=== PATIENT | male | born 1965 | race Caucasian/White ===

== ENCOUNTER 2019-10-25 14:59 | Emergency (ER) | payer MEDICAID, MEDICARE ==
--- NOTE | 2019-10-25 15:55 | EDM.PDOC ---
ED HPI GENERAL MEDICAL PROBLEM - General Chief Complaint: Genitourinary Problem Stated Complaint: TESTICULAR PAIN Time Seen by Provider: 10/25/19 15:01 Source of Information: Reports: Patient History Limitations: Reports: No Limitations - History of Present Illness INITIAL COMMENTS - FREE TEXT/NARRATIVE: HISTORY AND PHYSICAL: History of present illness: Patient is a 53-year-old male who presents to the ED today with concern of left testicular pain over the past 1 week. Patient states that he has had chronic left testicular pain after an injury that occurred in the approximately 20 years ago. Patient states that he has followed with Dr. Donohue for his left testicular pain for many years now but states that he is upset with his care. Patient states 1 week ago he began having more significant left-sided testicular pain so called Dr. Donohue's office today and was told to come to the ER to be evaluated. Patient states he has had an ultrasound done in the past by Dr. Donohue and states he is unsure of the cause of his testicle pain. Patient states he had an appointment today with Dr. Donohue the urologist but decided to cancel it because he does not prefer him. Patient denies any penile drainage. Patient denies any other symptoms or concerns. Patient denies fever, chills, chest pain, shortness of breath, or cough. Denies headache, neck stiff ness, change in vision, syncope, or near syncope. Denies nausea, vomiting, abdominal pain, diarrhea, constipation, or dysuria. Has not noted any blood in urine or stool. Patient has been eating and drinking appropriately. Review of systems: As per history of present illness and below otherwise all systems reviewed and negative. Past medical history: As per history of present illness and as reviewed below otherwise noncontributory. Surgical history: As per history of present illness and as reviewed below otherwise noncontributory. Social history: See social history for further information Family history: As per history of present illness and as reviewed below otherwise noncontributory. Physical exam: General: Patient is alert, oriented, and in no acute distress. Patient sitting comfortably on exam table. HEENT: Atraumatic, normocephalic, pupils equal and reactive bilaterally, negative for conjunctival pallor or scleral icterus, mucous membranes moist, TMs normal bilaterally, throat clear, neck supple, nontender, trachea midline. No drooling or trismus noted. No meningeal signs. No hot potato voice noted. Lungs: Clear to auscultation, breath sounds equal bilaterally, chest nontender. Heart: S1S2, regular rate and rhythm without overt murmur Abdomen: Soft, nondistended, nontender. Negative for masses or hepatosplenomegaly. Negative for costovertebral tenderness. Pelvis: Stable nontender. Genitourinary: Cotton Factor at bedside RP. Patient does have moderate pain of the left testicle and scrotum; left scrotum does have a "bag of worms" on palpation. No penile drainage, rashes, lesions, or hernia noted. Rectal: Deferred. Skin: Intact, warm, dry. No lesions or rashes noted. Extremities: Atraumatic, negative for cords or calf pain. Neurovascular unremarkable. Neuro: Awake, alert, oriented. Cranial nerves II through XII unremarkable. Cerebellum unremarkable. Motor and sensory unremarkable throughout. Exam nonfocal. Notes: Discussed the importance for follow up with the urologist. Voices understanding and is agreeable to plan of care. Denies any further questions or concerns at this time. Diagnostics: UA, gonorrhea and chlamydia, scrotum w contents US Therapeutics: None Prescription: None Impression: Bilateral varicoceles Plan: 1. Wear an athletic support/jock strap as discussed for symptomatic relief. 2. Alternate ibuprofen and Tylenol as directed for pain and discomfort. 3. Follow-up with the urologist as discussed. Return to the ED as needed and as discussed. Definitive disposition and diagnosis as appropriate pending reevaluation and review of above. Treatments PROFESSOR OF ENVIRONMENTAL STUDIES: Reports: Aspirin, NSAIDS Scrotum Pain Score (Numeric/FACES): 10 - Related Data Allergies Allergy/AdvReac Type Severity Reaction Status Date / Time No Known Allergies Allergy Verified 04/25/19 10:35 Home Meds: Home Meds Brinzolamide/Brimonidine Tart [Simbrinza 1%-0.2% Eye Drops] 1 ml OP BEDTIME [History] Latanoprost 2.5 ml OP QID 10/25/19 [History] prednisoLONE acetate [Pred Mild] 10 ml OP QID 10/25/19 [History] timoloL maleate [Timoptic 0.5% Opth Soln] 5 ml .XX QID 10/25/19 [History] ED ROS GENERAL - Review of Systems Review Of Systems: Comprehensive ROS is negative, except as noted in HPI. ED EXAM, GENERAL - Physical Exam Exam: See Below (see dictation) Course - Vital Signs Last Recorded V/S: Last Vital Signs Temp 97.6 F 10/25/19 15:30 Pulse 67 10/25/19 15:30 Resp 20 10/25/19 15:30 BP 139/113 H 10/25/19 15:30 Pulse Ox 97 10/25/19 15:30 - Orders/Labs/Meds Orders: Active Orders 24 hr Category Date Time Status Scrotal Duplex Ltd [US] Routine Exams 10/25/19 Taken CHLAMYDIA AND GONORRHEA BY TMA Stat Lab 10/25/19 17:00 Received Labs: Laboratory Tests 10/25/19 Range/Units 17:00 Urine Color YELLOW Urine Appearance CLEAR Urine pH 6.0 (5.0-8.0) Ur Specific [place]abor >= 1.030 (1.001-1.035) Urine Protein NEGATIVE (NEGATIVE) mg/dL Urine Glucose (UA) NEGATIVE (NEGATIVE) mg/dL Urine Ketones NEGATIVE (NEGATIVE) mg/dL Urine Occult Blood NEGATIVE (NEGATIVE) Urine Nitrite NEGATIVE (NEGATIVE) Urine Bilirubin NEGATIVE (NEGATIVE) Urine Urobilinogen 0.2 (<2.0) EU/dL Ur Leukocyte Esterase NEGATIVE (NEGATIVE) Departure - Departure Time of Disposition: 17:24 Disposition: Home, Self-Care 01 Clinical Impression: Varicocele - Discharge Information Referrals: PCP,None [Primary Care Provider] - Forms: ED Department Discharge Additional Instructions: The following information is given to patients seen in the emergency department who are being discharged to home. This information is to outline your options for follow-up care. We provide all patients seen in our emergency department with a follow-up referral. The need for follow-up, as well as the timing and circumstances, are variable depending upon the specifics of your emergency department visit. If you don't have a primary care physician on staff, we will provide you with a referral. We always advise you to contact your personal physician following an emergency department visit to inform them of the circumstance of the visit and for follow-up with them and/or the need for any referrals to a consulting specialist. The emergency department will also refer you to a specialist when appropriate. This referral assures that you have the opportunity for follow-up care with a specialist. All of these measure are taken in an effort to provide you with optimal care, which includes your follow-up. Under all circumstances we always encourage you to contact your private physician who remains a resource for coordinating your care. When calling for follow-up care, please make the office aware that this follow-up is from your recent emergency room visit. If for any reason you are refused follow-up, please contact the [facility] Emergency Department at and asked to speak to the emergency department charge nurse. [facility] [address] [place] [id number] [facility] [address] [place] [id number] [facility] - Urology, Dr. Chicas [address] [place] [id number] [facility], Urology [address] [place] [address], 5th floor 1. Wear an athletic support/jock strap as discussed for symptomatic relief. 2. Alternate ibuprofen and Tylenol as directed for pain and discomfort. 3. Follow-up with the urologist as discussed. Return to the ED as needed and as discussed. Sepsis Event Note - Evaluation Sepsis Screening Result: No Definite Risk - Focused Exam Vital Signs: Vital Signs Temp Pulse Resp BP Pulse Ox 10/25/19 15:30 97.6 F 67 20 139/113 H 97 Date Exam was Performed: 10/25/19 Time Exam was Performed: 17:19 - My Orders Last 24 Hours: My Active Orders 10/25/19 17:00 CHLAMYDIA AND GONORRHEA BY TMA Stat - Assessment/Plan Last 24 Hours: My Active Orders 10/25/19 17:00 CHLAMYDIA AND GONORRHEA BY TMA Stat
--- NOTE | 2019-10-25 17:13 | US ---
Testicular ultrasound: Multiple real-time images of the testicles were obtained. Multiple real-time images were obtained of both testicles as well as color Doppler evaluation and duplex evaluation. Testicles show homogeneous ultrasound appearance without intratesticular abnormality. Both arterial and venous blood flow are seen within the testicles. Small bilateral hydroceles are noted. Small right-sided varicocele is seen. Larger left-sided varicocele is noted. Impression: 1. Bilateral varicoceles, larger on the left side. 2. Small bilateral hydroceles. 3. No intratesticular abnormality is seen. Diagnostic code #3 This report was dictated in MDT
--- NOTE | 2019-10-26 10:41 | US ---
EXAM DATE: 10/25/19 PATIENT'S AGE: 53 Testicular ultrasound: Multiple real-time images of the testicles were obtained. Multiple real-time images were obtained of both testicles as well as color Doppler evaluation and duplex evaluation. Testicles show homogeneous ultrasound appearance without intratesticular abnormality. Both arterial and venous blood flow are seen within the testicles. Small bilateral hydroceles are noted. Small right-sided varicocele is seen. Larger left-sided varicocele is noted. Impression: 1. Bilateral varicoceles, larger on the left side. 2. Small bilateral hydroceles. 3. No intratesticular abnormality is seen. Diagnostic code #3 This report was dictated in MDT Report Signed by Proxy. NEVAEH
== END 2019-10-25 17:31 | disposition home or self-care (01) ==
LOC: MW.ED 14:59
DX: I86.1 Scrotal varices (principal); Z79.899 Other long term (current) drug therapy
CPT/HCPCS: 76870; 76870-26; 81003; 87491; 87591; 93976; 93976-26; 99284-25

== ENCOUNTER 2020-01-02 16:40 | Observation (INO) | payer MEDICAID ==
--- NOTE | 2020-01-02 17:06 | CT ---
Head CT Technique: Multiple axial sections through the brain were obtained. Intravenous contrast was not utilized. Comparison: Prior head CT study of 12/29/19. Findings: Wedgelike defect seen within the left posterior parietal cortex is stable most likely representing old small infarct. No other abnormal parenchymal densities are seen. No evidence of intracranial hemorrhage. No midline shift or mass-effect is seen. Ventricles along with basal cisterns and sulci over the convexities are within normal limits for the patient's age. Visualized paranasal sinuses and mastoid sinuses show nothing acute. No acute calvarial finding is seen. Impression: 1. Stable head CT from previous exam of 12/29/19. 2. No acute intracranial abnormality is appreciated. Diagnostic code #2 This report was dictated in MDT
--- NOTE | 2020-01-02 17:13 | EDM.PDOC ---
ED HPI GENERAL MEDICAL PROBLEM - General Chief Complaint: Neuro Symptoms/Deficits Stated Complaint: MINI STROCK Time Seen by Provider: 01/02/20 17:01 Source of Information: Reports: Patient, Old Records History Limitations: Reports: No Limitations - History of Present Illness INITIAL COMMENTS - FREE TEXT/NARRATIVE: 54-year-old male past medical history of hyper tension, hyperlipidemia presenting with concern for stroke. Patient states that in the middle the night this morning, he woke up with a left-sided retro-orbital headache. He took several doses of ibuprofen without relief. Around 1 PM this afternoon, the patient began developing left-sided facial droop "from the eyelid down". This is also accompanied by burning pain and tingling to the left upper and lower extremities and weakness to left upper and lower extremities. Patient states that the facial droop and left upper and lower extremity weakness have been improving on their own. At present here in the emergency department, he complains of pain to the left side of the face and tingling to the left arm and leg. He also complains of weakness to the left leg. Denies any history of head trauma. He states that approximately 5 days ago, he was evaluated for transient left upper and lower extremity weakness - Related Data Allergies Allergy/AdvReac Type Severity Reaction Status Date / Time No Known Allergies Allergy Verified 01/02/20 16:43 Home Meds: Home Meds Brinzolamide/Brimonidine Tart [Simbrinza 1%-0.2% Eye Drops] 1 ml OP BEDTIME 10/25/19 [History] Latanoprost 2.5 ml OP QID 10/25/19 [History] prednisoLONE acetate [Pred Mild] 10 ml OP QID 10/25/19 [History] timoloL maleate [Timoptic 0.5% Opth Soln] 5 ml .XX QID 10/25/19 [History] atorvaSTATin Calcium [Lipitor] 20 mg PO BEDTIME 01/02/20 [History] Past Medical History HEENT History: Reports: Retinal Detachment Other Cardiovascular History: Hyperlipidemia Genitourinary History: Reports: Other (See Below) Other Genitourinary History: "L testical problems since in ." - Infectious Disease History Infectious Disease History: Reports: Chicken Pox Social & Family History - Family History Family Medical History: Noncontributory - Caffeine Use Caffeine Use: Reports: None ED ROS GENERAL - Review of Systems Review Of Systems: See Below Constitutional: Denies: Fever, Chills HEENT: Denies: Ear Discharge, Eye Pain, Hearing Loss, Vision Change Respiratory: Denies: Shortness of Breath Cardiovascular: Denies: Chest Pain Endocrine: Reports: No Symptoms GI/Abdominal: Denies: Abdominal Pain, Nausea, Vomiting : Denies: Flank Pain Musculoskeletal: Denies: Arm Pain, Back Pain Skin: Denies: Rash, Lesions Neurological: Reports: Headache, Numbness, Tingling, Weakness. Denies: Dizzine ss, Paresthesia, Pre-Existing Deficit, Seizure, Trouble Speaking, Change in Speech, Gait Disturbance Psychiatric: Reports: No Symptoms Hematologic/Lymphatic: Reports: No Symptoms Immunologic: Reports: No Symptoms ED EXAM, NEURO - Physical Exam Exam: See Below Text/Narrative:: Vital signs reviewed. Nursing notes reviewed. Constitutional: Awake, alert, non-distressed. Head: Normocephalic, atraumatic. Eyes: EOMI, conjunctiva normal, no discharge, no scleral icterus. PERRL at 3 mm bilaterally Ears, Nose, Throat: External ears and nose normal, moist oral mucosa. Cardiovascular: 2+ radial pulses bilaterally, capillary refill less than 2 seconds. Pulmonary: normal work of breathing, no accessory muscle use. Abdomen/GI: Soft, nontender, nondistended, no guarding or rigidity, no masses. Musculoskeletal: No deformities. Integumentary: Appropriate color for ethnicity, warm, dry, no pallor or jaundice, no rash. Neurologic: Awake, alert, and oriented x3. Cranial nerves II through XII intact. Mild facial droop to the corner of the left lip. No dysarthria. No temporal artery tenderness. Supple neck with normal range of motion. No pronator drift. Left leg drift noted on examination. Normal [id number] and [id number]. No dysdiadochokinesia. 5/5 strength in all extremities. Sensation intact to light touch x4. Normal visual marcano, no field cuts. Able to sit, stand, and ambulate without assistance. Psychiatric: Appropriate mood and affect, normal thought process. EKG INTERPRETATION EKG Interpretation Comments: 12-Lead ECG Interpretation Acquired: 5:16 PM Rhythm: Sinus bradycardia Rate: 58 bpm [place]: Left axis deviation Intervals: Normal Ectopy: None Ischemic Changes: None apparent RV Strain: No obvious RV strain pattern. ST Segments/T-Waves: No notable changes Interpretation: Abnormal ECG Course - Vital Signs Text/Narrative:: Patient mildly hypertensive but hemodynamically stable, afebrile, well- appearing, looks nontoxic. Differential diagnosis includes but is not limited to: Ischemic CVA, TIA, intracranial hemorrhage, subdural hemorrhage, subarachnoid hemorrhage, intraparenchymal hemorrhage, hypertensive encephalopathy, complex migraine, glucose disturbance, electrolyte disturbance, occult head trauma, postictal state, conversion disorder, etc. Patient was immediately declared as a stroke code upon being triaged and was immediately roomed. IV access was established and labs were sent. Blood glucose level is normal. Immediately taken to the radiology suite, noncontrast head CT shows a old appearing left parietal infarct. Angiography of the head and neck shows no acute occlusion, stable old infarct in the left parietal region. Returned to the ED bay. Twelve-lead EKG was obtained, showing no acute ischemia. We obtained a 1 view chest x-ray, which looks reassuring. Labs reassuring, negative troponin, normal INR and APTT, normal electrolytes and renal function. NIH stroke scale is 2. Passed bedside swallow test and given full dose Plavix as a loading dose. Took 324 mg aspirin at home. His neurologic symptoms seem to be improving over the past few hours which would be a contraindication to systemic thrombolysis. Additionally, think his NIH stroke scale is only 2 which will be considered minor deficits. [facility] was paged. I discussed the case with their neurologist (Dr. Vidal) who did not recommend tPA. They did recommend full-dose Plavix and admitting the hospital for the remainder of a stroke work-up. We will plan to admit to the hospitalist service on observation status. I spoke with Dr. Guy who agrees to admit. Last Recorded V/S: Last Vital Signs Temp 36.6 C 01/02/20 17:01 Pulse 66 01/02/20 17:21 Resp 18 01/02/20 17:21 BP 141/99 H 01/02/20 17:21 Pulse Ox 98 01/02/20 17:21 - Orders/Labs/Meds Orders: Active Orders 24 hr Category Date Time Status Assess Neurological Status [RC] CONTINUOUS Care 01/02/20 17:01 Active Blood Glucose Check, Bedside [RC] STAT Care 01/02/20 17:01 Active Cardiac Monitoring [RC] CONTINUOUS Care 01/02/20 17:01 Active Communication Order [RC] STAT Care 01/02/20 17:01 Active EKG 12 Lead [EKG Documentation Completion] [RC] STAT Care 01/02/20 17:13 Active Height and Weight [RC] UPON Care 01/02/20 17:01 Active NIH Stroke Scale [RC] Q15M Care 01/02/20 17:01 Active Nursing Bedside Swallow Screen [RC] STAT Care 01/02/20 17:01 Active Oxygen Therapy, ED [RC] ASDIRECTED Care 01/02/20 17:01 Active Vital Signs [RC] Q15M Care 01/02/20 17:01 Active Labs: Laboratory Tests 01/02/20 01/02/20 01/02/20 Range/Units 16:43 16:43 16:43 WBC 7.84 (4.0-11.0) K/uL RBC 5.05 (4.50-5.90) M/uL Hgb 14.7 (13.0-17.0) g/dL Hct 43.6 (38.0-50.0) % MCV 86.3 (80.0-98.0) fL MCH 29.1 (27.0-32.0) pg MCHC 33.7 (31.0-37.0) g/dL RDW Std Deviation 43.8 (28.0-62.0) fl RDW Coeff of Corky 14 (11.0-15.0) % Plt Count 240 (150-400) K/uL MPV 9.50 (7.40-12.00) fL Neut % (Auto) 51.5 (48.0-80.0) % Lymph % (Auto) 35.8 (16.0-40.0) % Casey % (Auto) 7.7 (0.0-15.0) % Eos % (Auto) 4.5 (0.0-7.0) % Baso % (Auto) 0.5 (0.0-1.5) % Neut # (Auto) 4.0 (1.4-5.7) K/uL Lymph # (Auto) 2.8 H (0.6-2.4) K/uL Casey # (Auto) 0.6 (0.0-0.8) K/uL Eos # (Auto) 0.4 (0.0-0.7) K/uL Baso # (Auto) 0.0 (0.0-0.1) K/uL Nucleated RBC % 0.0 /100WBC Nucleated RBCs # 0 K/uL INR 0.93 APTT 28.5 (18.6-31.3) SEC Sodium 142 (136-148) mmol/L Potassium 3.6 (3.5-5.1) mmol/L Chloride 106 (98-107) mmol/L Carbon Dioxide 27.5 (21.0-32.0) mmol/L BUN 9 (7.0-18.0) mg/dL Creatinine 0.9 (0.8-1.3) mg/dL Est Cr Clr Drug Dosing TNP Estimated GFR (MDRD) > 60.0 ml/min Glucose 116 H (74-106) mg/dL Calcium 8.7 (8.5-10.1) mg/dL Total Bilirubin 0.4 (0.2-1.0) mg/dL AST 18 (15-37) IU/L ALT 31 (14-63) IU/L Alkaline Phosphatase 58 (46-116) U/L Troponin I <0.050 (0.000-0.056) ng/mL Total Protein 7.1 (6.4-8.2) g/dL Albumin 4.0 (3.4-5.0) g/dL Globulin 3.1 (2.6-4.0) g/dL Albumin/Globulin Ratio 1.3 (0.9-1.6) Meds: Medications Discontinued Medications Generic Name Dose Route Start Last Admin Trade Name Freq PRN Reason Stop Dose Admin Acetaminophen 1,000 mg 01/02/20 17:48 01/02/20 18:07 Tylenol Extra Strength PO 01/02/20 17:49 1,000 mg ONETIME ONE Administration Clopidogrel Bisulfate 300 mg 01/02/20 17:32 01/02/20 17:39 Plavix PO 01/02/20 17:33 300 mg ONETIME ONE Administration Prochlorperazine Edisylate 5 51 mls @ 150 mls/hr 01/02/20 17:48 mg/ Sodium Chloride IV 01/02/20 18:08 ONETIME ONE Departure - Departure Time of Disposition: 17:47 Disposition: Refer to Observation Condition: Good Clinical Impression: Ischemic stroke - Discharge Information Sepsis Event Note (ED) - Evaluation Sepsis Screening Result: No Definite Risk - Focused Exam Vital Signs: Vital Signs Temp Pulse Resp BP Pulse Ox 01/02/20 17:21 66 18 141/99 H 98 01/02/20 17:01 36.6 C 58 L 16 133/92 H 98 01/02/20 16:48 36.4 C 84 18 153/94 H 98 - My Orders Last 24 Hours: My Active Orders 01/02/20 17:01 Assess Neurological Status [RC] CONTINUOUS Blood Glucose Check, Bedside [RC] STAT Cardiac Monitoring [RC] CONTINUOUS Communication Order [RC] STAT Height and Weight [RC] UPON NIH Stroke Scale [RC] Q15M Nursing Bedside Swallow Screen [RC] STAT Oxygen Therapy, ED [RC] ASDIRECTED Vital Signs [RC] Q15M 01/02/20 17:13 EKG 12 Lead [EKG Documentation Completion] [RC] STAT - Assessment/Plan Last 24 Hours: My Active Orders 01/02/20 17:01 Assess Neurological Status [RC] CONTINUOUS Blood Glucose Check, Bedside [RC] STAT Cardiac Monitoring [RC] CONTINUOUS Communication Order [RC] STAT Height and Weight [RC] UPON NIH Stroke Scale [RC] Q15M Nursing Bedside Swallow Screen [RC] STAT Oxygen Therapy, ED [RC] ASDIRECTED Vital Signs [RC] Q15M 01/02/20 17:13 EKG 12 Lead [EKG Documentation Completion] [RC] STAT
[2020-01-02 17:27] LABS: BLOOD UREA NITROGEN,BUN 9 mg/dL (7.0-18.0); CARBON DIOXIDE,CO2 27.5 mmol/L (21.0-32.0); CHLORIDE,CL 106 mmol/L (98-107); GLUCOSE RANDOM 116 mg/dL (74-106); POTASSIUM,K 3.6 mmol/L (3.5-5.1); SODIUM,NA 142 mmol/L (136-148)
[2020-01-02] MEDS ORDERED: Clopidogrel 75 MG Tab PO ONE (17:32)
--- NOTE | 2020-01-02 17:33 | CT ---
CT angiogram of the neck Technique: Multiple axial sections through the neck were obtained. Intravenous contrast was utilized. Multiple MIP images were obtained. Comparison: No prior neck angiogram is available. Findings: Both vertebral arteries are patent into the basilar artery. No focal stenosis or occlusion is seen. No dissection is seen. Common carotid artery showed no evidence of stenosis. There is mild plaque being seen within the distal common carotid artery at the carotid bulb causing no significant narrowing. Small outpouching of contrast into this plaque is seen into this plaque and this is felt to represent a ulcerated plaque. Internal carotid arteries are patent into the middle and anterior cerebral arteries. Proximal external carotid arteries appear within normal limits. No dissection is seen. Impression: 1. Focal plaque within the distal left common carotid artery at the carotid bulb. Small outpouching of contrast is seen into this plaque which is felt to represent a ulcerated plaque. Plaque causes no significant stenosis. 2. No additional abnormality is seen on CT angiogram of the neck. Diagnostic code #3 This report was dictated in MDT
--- NOTE | 2020-01-02 17:36 | CT ---
CT angiogram of brain Technique: Multiple axial sections through the brain were obtained. Intravenous contrast was given. Study performed in the arterial phase. Multiple MIP images were obtained. Comparison: No previous intracranial vascular imaging is available. Findings: Distal vertebral arteries are patent into the basilar artery. Both posterior cerebral arteries are patent. Both middle cerebral arteries are patent. Anterior cerebral arteries are also patent. No focal occlusion or narrowing is seen. No discrete aneurysm is appreciated. No vessels are seen in the area of the small old left-sided cortical infarct. Impression: 1. Lack of vessels within previously noted old infarct within the posterior left parietal region. 2. CT angiogram study of the brain is otherwise unremarkable. Diagnostic code #2 This report was dictated in MDT
[2020-01-02] MEDS ORDERED: Acetaminophen 500 MG Tab PO ONE (17:48)
[2020-01-02] MEDS ORDERED: Prochlorperazine 5 MG in Sodium Chloride 0.9% 50 ML IV ONE (17:48)
--- NOTE | 2020-01-02 18:02 | CR ---
Chest: Portable view of the chest was obtained. Comparison: Prior chest CT study of . Nodule is noted within the left lung base which correlates to a calcified granuloma on chest CT. Lungs otherwise are clear. Heart size and mediastinum are normal. Bony structures are grossly intact. Impression: 1. Nodule within the left lung base which correlates to a calcified granuloma chest CT. 2. Nothing acute is seen on portable chest x-ray. Diagnostic code #2 This report was dictated in MDT
[2020-01-02] MEDS ORDERED: Acetaminophen 325 MG Tab PO PRN (18:17)
[2020-01-02] MEDS ORDERED: Albuterol/Ipratropium 3.0-0.5 MG/3 ML Neb Soln NEB PRN (18:17)
--- NOTE | 2020-01-02 18:42 | PCM.HP.2 ---
H&P History of Present Illness - General Date of Service: 01/02/20 Admit Problem/Dx: Admission Diagnosis/Problem Admission Diagnosis/Problem Ischemic stroke - History of Present Illness Initial Comments - Free Text/Narative: 54-year-old male past medical history of HTN, HLD, CVA presenting to ER with c/o left-sided facial droop. Patient states that in the middle the night, patient woke up with a left-sided retro-orbital headache which was persistent in nature, He took several doses of ibuprofen without relief. Patient states this afternoon around 1pm, he noticed he had developed left-sided facial droop along with burning sensation, tingling and some weakness to the left upper and lower extremities. In the ER patient reported improvement in his symptoms but no complete resolution Denies any history of head trauma. According to the patient he was being evaluated by his PCP 5 days ago for possible TIA. 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 CTA of head and neck was done, showed no acute occlusion. EKG showed no acute ST/T wave ischemic changes. CXR unremarkable, Neurology concrete building assembler at [facility] was paged recommended no TPA, and to administer full dose of Plavix. Patient denied chest pain, syncope, palpitations, N/V, abdominal pain, dysuria, hematuria. Patient is being admitted for further work up. He also stated that his vision is blurry since 1pm today. 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 States his surgery had some complications so he has to get it redone as he sees double vision since his surgery. During my evaluation patient was upset when that "[facility]" doctor was contacted for recommendations of his care in the ER. States he had a bad experience with a doctor at [facility] and had he known "we would get [facility] doctor on board for his care he would have gone to [facility]" Patient asked for the room lights to be turned off during my physical exam due to photophobia. He let me perform only partial physical exam, would not let me examine his cranial nerves, states "dont mess with my eyes". Stated that doctors protect other doctors in this state and i will be one of them if i am not already. Patient got very upset and agitated and asked me to leave the room , I left the room there after as i felt physically threatened. Later i was told by the nursing staff that he asked for them to "keep the doctor out of his room." Head Pain Score (Numeric/FACES): 6 - Related Data Allergies/Adverse Reactions: Allergies Allergy/AdvReac Type Severity Reaction Status Date / Time No Known Allergies Allergy Verified 01/02/20 21:06 Home Medications: Home Meds Brinzolamide/Brimonidine Tart [Simbrinza 1%-0.2% Eye Drops] 1 ml OP BEDTIME 10/25/19 [History] Latanoprost 2.5 ml OP BEDTIME 10/25/19 [History] prednisoLONE acetate [Pred Mild] 10 ml OP QID 10/25/19 [History] timoloL maleate [Timoptic 0.5% Opth Soln] 5 ml .XX BID 10/25/19 [History] Ketorolac Tromethamine [Acular] 5 ml OP QID 01/02/20 [History] atorvaSTATin Calcium [Lipitor] 20 mg PO BEDTIME 01/02/20 [History] Past Medical History HEENT History: Reports: Retinal Detachment Cardiovascular History: Reports: None Other Cardiovascular History: Hyperlipidemia Respiratory History: Reports: None Gastrointestinal History: Reports: None Genitourinary History: Reports: Other (See Below) Other Genitourinary History: "L testical problems since in ." Musculoskeletal History: Reports: None Neurological History: Reports: None Psychiatric History: Reports: None Endocrine/Metabolic History: Reports: None Hematologic History: Reports: None Immunologic History: Reports: None Oncologic (Cancer) History: Reports: None Dermatologic History: Reports: None - Infectious Disease History Infectious Disease History: Reports: Chicken Pox - Past Surgical History Head Surgeries/Procedures: Reports: None HEENT Surgical History: Reports: None Cardiovascular Surgical History: Reports: None Respiratory Surgical History: Reports: None GI Surgical History: Reports: None Male Surgical History: Reports: None Endocrine Surgical History: Reports: None Neurological Surgical History: Reports: None Musculoskeletal Surgical History: Reports: None Oncologic Surgical History: Reports: None Dermatological Surgical History: Reports: None Social & Family History - Family History Family Medical History: Noncontributory - Tobacco Use Smoking Status *Q: Never Smoker Second Hand Smoke Exposure: No - Caffeine Use Caffeine Use: Reports: None - Recreational Drug Use Recreational Drug Use: Yes Recreational Drug Type: Reports: Marijuana/Hashish Recreational Drug Use Frequency: Daily H&P Review of Systems - Review of Systems: Review Of Systems: See Below General: Denies: Fever, Chills, Malaise, Weakness, Fatigue HEENT: Reports: Headaches. Denies: Ear Pain, Post Nasal Drip, Sinus Congestion Pulmonary: Denies: Shortness of Breath, Wheezing, Pleuritic Chest Pain Cardiovascular: Denies: Chest Pain, Palpitations, Dyspnea on Exertion, Orthopnea Gastrointestinal: Denies: Abdominal Pain, Anorexia, Black Stool Genitourinary: Denies: Dysuria, Frequency, Burning Musculoskeletal: Reports: Shoulder Pain, Arm Pain, Hand Pain, Leg Pain. Denies: Neck Pain, Back Pain Skin: Denies: Cyanosis, Jaundice, Mottled Psychiatric: Denies: Confusion, Depression, Mood Lability Neurological: Reports: Headache, Numbness, Tingling, Weakness. Denies: Confusion, Dizziness, Paresthesia, Pre-Existing Deficit Exam - Exam Exam: See Below Reason Not Obtained: incomplete exam due to patient not being co-operative - Vital Signs Vital Signs: Last Vital Signs Temp 36.6 C 01/02/20 17:01 Pulse 66 01/02/20 17:21 Resp 18 01/02/20 17:21 BP 141/99 H 01/02/20 17:21 Pulse Ox 98 01/02/20 17:21 Weight: 105.5 kg - Exam Quality Assessment: Supplemental Oxygen General: Alert, Oriented HEENT: Conjunctiva Clear Neck: Supple, Trachea Midline Lungs: Clear to Auscultation, Normal Respiratory Effort Cardiovascular: Regular Rate, Regular Rhythm, Normal S1, Normal S2 GI/Abdominal Exam: Normal Bowel Sounds, Soft, Non-Tender Extremities: Normal Inspection, Normal Range of Motion, No Pedal Edema, Leg Pain Skin: Warm Neurological: Normal Speech, Normal Tone Neuro Extensive - Mental Status: Alert, Oriented x3, Normal Cognition, Memory Intact, Withdraws to Pain. No: Disorientation to Person, Disorientation to Place, Disorientation to Time, Memory Loss-Remote Events, Memory Loss-Recent Events, Opens Eyes to Commands, Slow Response to Commands Neuro Extensive - Motor, Sensory, Reflexes: Abnormal Sensation, Abnormal Light Touch, Other (mild left facial droop). No: Dysarthria, Receptive Aphasia, Expressive Aphasia DTR: 3+: Patella (L), Patella (R) Psychiatric: Alert, Agitated. No: Normal Mood, Depressed, Homicidal Ideation, Hallucinations, Withdrawal Symptoms Physical Exam Comments:: incomplete neuro exam due to patient not being co-operative - Patient Data Lab Results Last 24 hrs: Laboratory Results - last 24 hr 01/02/20 01/02/20 01/02/20 Range/Units 16:43 16:43 16:43 WBC 7.84 (4.0-11.0) K/uL RBC 5.05 (4.50-5.90) M/uL Hgb 14.7 (13.0-17.0) g/dL Hct 43.6 (38.0-50.0) % MCV 86.3 (80.0-98.0) fL MCH 29.1 (27.0-32.0) pg MCHC 33.7 (31.0-37.0) g/dL RDW Std Deviation 43.8 (28.0-62.0) fl RDW Coeff of Corky 14 (11.0-15.0) % Plt Count 240 (150-400) K/uL MPV 9.50 (7.40-12.00) fL Neut % (Auto) 51.5 (48.0-80.0) % Lymph % (Auto) 35.8 (16.0-40.0) % Wake % (Auto) 7.7 (0.0-15.0) % Eos % (Auto) 4.5 (0.0-7.0) % Baso % (Auto) 0.5 (0.0-1.5) % Neut # (Auto) 4.0 (1.4-5.7) K/uL Lymph # (Auto) 2.8 H (0.6-2.4) K/uL Wake # (Auto) 0.6 (0.0-0.8) K/uL Eos # (Auto) 0.4 (0.0-0.7) K/uL Baso # (Auto) 0.0 (0.0-0.1) K/uL Nucleated RBC % 0.0 /100WBC Nucleated RBCs # 0 K/uL INR 0.93 APTT 28.5 (18.6-31.3) SEC Sodium 142 (136-148) mmol/L Potassium 3.6 (3.5-5.1) mmol/L Chloride 106 (98-107) mmol/L Carbon Dioxide 27.5 (21.0-32.0) mmol/L BUN 9 (7.0-18.0) mg/dL Creatinine 0.9 (0.8-1.3) mg/dL Est Cr Clr Drug Dosing TNP Estimated GFR (MDRD) > 60.0 ml/min Glucose 116 H (74-106) mg/dL Calcium 8.7 (8.5-10.1) mg/dL Total Bilirubin 0.4 (0.2-1.0) mg/dL AST 18 (15-37) IU/L ALT 31 (14-63) IU/L Alkaline Phosphatase 58 (46-116) U/L Troponin I <0.050 (0.000-0.056) ng/mL Total Protein 7.1 (6.4-8.2) g/dL Albumin 4.0 (3.4-5.0) g/dL Globulin 3.1 (2.6-4.0) g/dL Albumin/Globulin Ratio 1.3 (0.9-1.6) Result Diagrams: 01/03/20 05:40 01/03/20 05:40 Sepsis Event Note - Evaluation Sepsis Screening Result: No Definite Risk - Focused Exam Vital Signs: Vital Signs Temp Pulse Resp BP Pulse Ox 01/02/20 17:21 66 18 141/99 H 98 01/02/20 17:01 36.6 C 58 L 16 133/92 H 98 01/02/20 16:48 36.4 C 84 18 153/94 H 98 Date Exam was Performed: 01/03/20 Time Exam was Performed: 10:43 - Problem List (1) HTN (hypertension) SNOMED Code(s): 29344034 ICD Code: I10 - ESSENTIAL (PRIMARY) HYPERTENSION Status: Acute Current Visit: Yes (2) HLD (hyperlipidemia) SNOMED Code(s): 47196448 ICD Code: E78.5 - HYPERLIPIDEMIA, UNSPECIFIED Status: Acute Current Visit: Yes (3) CVA (cerebral vascular accident) SNOMED Code(s): 950335998 ICD Code: I63.9 - CEREBRAL INFARCTION, UNSPECIFIED Status: Acute Current Visit: Yes (4) Left face and left arm tingling SNOMED Code(s): 84695305, 654284617, 627054791 ICD Code: R20.2 - PARESTHESIA OF SKIN Status: Acute Current Visit: Yes Problem List Initiated/Reviewed/Updated: Yes Orders Last 24hrs: Active Orders 24 hr Category Date Time Status Admission Status [Patient Status] [ADT] Routine ADT 01/02/20 18:33 Active Antiembolic Devices [RC] PER UNIT ROUTINE Care 01/02/20 18:14 Active Assess Neurological Status [RC] CONTINUOUS Care 01/02/20 17:01 Active Blood Glucose Check, Bedside [RC] STAT Care 01/02/20 17:01 Active Cardiac Monitoring [RC] CONTINUOUS Care 01/02/20 17:01 Active Communication Order [RC] STAT Care 01/02/20 17:01 Active EKG 12 Lead [EKG Documentation Completion] [RC] STAT Care 01/02/20 17:13 Acti ve Height and Weight [RC] UPON Care 01/02/20 17:01 Active NIH Stroke Scale [RC] Q15M Care 01/02/20 17:01 Active Neuro Check [RC] Q4H Care 01/02/20 18:12 Active Nursing Bedside Swallow Screen [RC] STAT Care 01/02/20 17:01 Active Oxygen Therapy, ED [RC] ASDIRECTED Care 01/02/20 17:01 Active Oxygen Therapy, ED [RC] ASDIRECTED Care 01/02/20 18:12 Active RT Aerosol Therapy [RC] ASDIRECTED Care 01/02/20 18:17 Active Telemetry Monitoring [Cardiac Monitoring] [RC] . Care 01/02/20 18:34 Active DIRECTED Up ad Tika [RC] ASDIRECTED Care 01/02/20 18:12 Active Vital Signs [RC] Q15M Care 01/02/20 17:01 Active Vital Signs [RC] Q4H Care 01/02/20 18:12 Active Heart Healthy Diet [DIET] Diet 01/03/20 Breakfast Active Brain wo Cont [MR] Routine Exams 01/02/20 18:12 Ordered Echo 2D wo Cont [US] Routine Exams 01/02/20 18:12 Ordered BASIC METABOLIC PANEL,BMP [CHEM] AM Lab 01/03/20 05:11 Ordered CBC WITH AUTO DIFF [HEME] AM Lab 01/03/20 05:11 Ordered GLYCOSYLATED HEMOGLOBIN,HGBA1C [CHEM] AM Lab 01/03/20 05:11 Ordered LIPID PANEL [CHEM] AM Lab 01/03/20 05:11 Ordered MAGNESIUM [CHEM] AM Lab 01/03/20 05:11 Ordered PHOSPHORUS [CHEM] AM Lab 01/03/20 05:11 Ordered TSH [CHEM] AM Lab 01/03/20 05:11 Ordered Acetaminophen [Tylenol] Med 01/02/20 18:17 Ordered 650 mg PO Q6H PRN Albuterol/Ipratropium [DuoNeb 3.0-0.5 MG/3 ML] Med 01/02/20 18:17 Ordered 3 ml NEB Q4HRRT PRN Pulse Oximetry Continuous Monitoring [OM.PC] PRN Oth 01/02/20 18:17 Ordered Sequential Compression Device [OM.PC] Routine Oth 01/02/20 18:12 Ordered Medication Orders Acetaminophen (Tylenol) 650 mg PO Q6H PRN PRN Reason: Headache/Pain Albuterol/Ipratropium (Duoneb 3.0-0.5 Mg/3 Ml) 3 ml NEB Q4HRRT PRN PRN Reason: Shortness of Breath Assessment/Plan Comment:: 54 y/o M admitted for concern of stroke Neurology at [facility] didn't recommend TPA Admit to tele Vitals Q4 hours, Q4 Neuro checks Monitor on tele CTA noted to have a plaque in distal left common carotid artery but no acute oc clusion Will increase dose of statin to 40 mg daily Start ASA daily Obtain MRI of brain Lipid panel, HbA1c done recently in last few days Obtain 2D echo, TSH Monitor and replete electrolytes as needed Will consult Neurology in AM for further recs after MRI is obtained AHA diet SCD for dvt ppx
[2020-01-02] MEDS ORDERED: Iopamidol 755 MG/ML 50 ML Bottle IV ONE ×2 (19:12)
[2020-01-02] MEDS ORDERED: Potassium Chloride 20 MEQ Tab.ER PO ONE (19:54)
[2020-01-02] MEDS ORDERED: atorvaSTATin 20 MG Tab PO SCH (21:00)
[2020-01-02] MEDS ORDERED: atorvaSTATin 40 MG Tab PO SCH (21:00)
[2020-01-02] MEDS ORDERED: Non-Formulary Medication 1 Each (Brinzolamide/Brimonidine Tart [Simbrinza 1%-0.2% Eye Drop OP SCH (21:00)
[2020-01-03] MEDS ORDERED: KETOROLAC 0.5% SCH
[2020-01-03] MEDS ORDERED: PREDNISOLONE ACETATE 1% SCH
[2020-01-03] MEDS ORDERED: TIMOLOL MALEATE 0.5% SCH
[2020-01-03] MEDS ORDERED: Latanoprost 0.005% Ophth Soln 2.5 ML Bottle EYEBOTH SCH
[2020-01-03 06:21] LABS: BLOOD UREA NITROGEN,BUN 10 mg/dL (7.0-18.0); CARBON DIOXIDE,CO2 26.2 mmol/L (21.0-32.0); CHLORIDE,CL 107 mmol/L (98-107); GLUCOSE RANDOM 106 mg/dL (74-106); POTASSIUM,K 3.8 mmol/L (3.5-5.1); SODIUM,NA 142 mmol/L (136-148)
[2020-01-03] MEDS ORDERED: Aspirin 81 MG Tab.Chew PO SCH (09:00)
[2020-01-03] MEDS ORDERED: Timolol Maleate 0.5% Ophth Soln 15 ML Bottle SCH (09:00)
--- NOTE | 2020-01-03 11:43 | PCM.PN ---
- General Info Date of Service: 01/03/20 Admission Dx/Problem (Free Text): Admission Diagnosis/Problem Admission Diagnosis/Problem Ischemic stroke Subjective Update: Initially in the morning, allowed only limited exam done allowed to listen to heart and lungs. Did not want to remove ice pack from eyes and face for neurological exam. Very argumentative regarding medication changes and Refused to see MD. Spoke with Administration and is ok with exam by, myself. Much better mood and more content on second interview. Reports headache continues despite Tylenol. Ice to L eye is helping. he reports the headache and L visual haziness started approximately 3 days ago. He came in as the headache worsened. Had complained of intermittent L parathesias to other providers, but denies them now and denies facial droop, as he felt that is better as well. Reports headache was jose-orbital and now also is like his normal migraines, encompassing his occipital posterior head. He has photophobia, not wanting lights on. Up ambulating in room per self with no deficits noted. Functional Status: Reports: Tolerating Diet, Ambulating, Urinating. Denies: Pain Controlled - Review of Systems General: Denies: Fatigue, Malaise HEENT: Reports: Eye Pain, Headaches, Visual Changes Pulmonary: Denies: Shortness of Breath Cardiovascular: Denies: Chest Pain Gastrointestinal: Reports: No Symptoms. Denies: Abdominal Pain, Nausea, Vomiting Genitourinary: Reports: No Symptoms. Denies: Dysuria, Frequency, Burning Musculoskeletal: Reports: No Symptoms Skin: Reports: No Symptoms Neurological: Reports: Headache Psychiatric: Reports: No Symptoms - Patient Data Vitals - Most Recent: Last Vital Signs Temp 99 F 01/03/20 08:00 Pulse 57 L 01/03/20 08:00 Resp 16 01/03/20 08:00 BP 149/83 H 01/03/20 08:00 Pulse Ox 98 01/03/20 08:00 Weight - Most Recent: 105.5 kg I&O - Last 24 Hours: Intake & Output 01/02/20 01/03/20 01/03/20 22:59 06:59 14:59 Intake Total 750 Output Total 1950 Balance -1200 Lab Results Last 24 Hours: Laboratory Results - last 24 hr 01/02/20 01/02/20 01/02/20 Range/Units 16:43 16:43 16:43 WBC 7.84 (4.0-11.0) K/uL RBC 5.05 (4.50-5.90) M/uL Hgb 14.7 (13.0-17.0) g/dL Hct 43.6 (38.0-50.0) % MCV 86.3 (80.0-98.0) fL MCH 29.1 (27.0-32.0) pg MCHC 33.7 (31.0-37.0) g/dL RDW Std Deviation 43.8 (28.0-62.0) fl RDW Coeff of Corky 14 (11.0-15.0) % Plt Count 240 (150-400) K/uL MPV 9.50 (7.40-12.00) fL Neut % (Auto) 51.5 (48.0-80.0) % Lymph % (Auto) 35.8 (16.0-40.0) % Weston % (Auto) 7.7 (0.0-15.0) % Eos % (Auto) 4.5 (0.0-7.0) % Baso % (Auto) 0.5 (0.0-1.5) % Neut # (Auto) 4.0 (1.4-5.7) K/uL Lymph # (Auto) 2.8 H (0.6-2.4) K/uL Weston # (Auto) 0.6 (0.0-0.8) K/uL Eos # (Auto) 0.4 (0.0-0.7) K/uL Baso # (Auto) 0.0 (0.0-0.1) K/uL Nucleated RBC % 0.0 /100WBC Nucleated RBCs # 0 K/uL ESR (0-19) mm/hr INR 0.93 APTT 28.5 (18.6-31.3) SEC Sodium 142 (136-148) mmol/L Potassium 3.6 (3.5-5.1) mmol/L Chloride 106 (98-107) mmol/L Carbon Dioxide 27.5 (21.0-32.0) mmol/L BUN 9 (7.0-18.0) mg/dL Creatinine 0.9 (0.8-1.3) mg/dL Est Cr Clr Drug Dosing TNP Estimated GFR (MDRD) > 60.0 ml/min Glucose 116 H (74-106) mg/dL Calcium 8.7 (8.5-10.1) mg/dL Phosphorus (2.6-4.7) mg/dL Magnesium (1.8-2.4) mg/dL Total Bilirubin 0.4 (0.2-1.0) mg/dL AST 18 (15-37) IU/L ALT 31 (14-63) IU/L Alkaline Phosphatase 58 (46-116) U/L Troponin I <0.050 (0.000-0.056) ng/mL C-Reactive Protein (0.00-0.90) mg/dL Total Protein 7.1 (6.4-8.2) g/dL Albumin 4.0 (3.4-5.0) g/dL Globulin 3.1 (2.6-4.0) g/dL Albumin/Globulin Ratio 1.3 (0.9-1.6) TSH 3rd Generation (0.36-3.74) uIU/mL 01/02/20 01/02/20 01/02/20 Range/Units 16:43 16:43 16:43 WBC (4.0-11.0) K/uL RBC (4.50-5.90) M/uL Hgb (13.0-17.0) g/dL Hct (38.0-50.0) % MCV (80.0-98.0) fL MCH (27.0-32.0) pg MCHC (31.0-37.0) g/dL RDW Std Deviation (28.0-62.0) fl RDW Coeff of Corky (11.0-15.0) % Plt Count (150-400) K/uL MPV (7.40-12.00) fL Neut % (Auto) (48.0-80.0) % Lymph % (Auto) (16.0-40.0) % Weston % (Auto) (0.0-15.0) % Eos % (Auto) (0.0-7.0) % Baso % (Auto) (0.0-1.5) % Neut # (Auto) (1.4-5.7) K/uL Lymph # (Auto) (0.6-2.4) K/uL Weston # (Auto) (0.0-0.8) K/uL Eos # (Auto) (0.0-0.7) K/uL Baso # (Auto) (0.0-0.1) K/uL Nucleated RBC % /100WBC Nucleated RBCs # K/uL ESR 3 (0-19) mm/hr INR APTT (18.6-31.3) SEC Sodium (136-148) mmol/L Potassium (3.5-5.1) mmol/L Chloride (98-107) mmol/L Carbon Dioxide (21.0-32.0) mmol/L BUN (7.0-18.0) mg/dL Creatinine (0.8-1.3) mg/dL Est Cr Clr Drug Dosing Estimated GFR (MDRD) ml/min Glucose (74-106) mg/dL Calcium (8.5-10.1) mg/dL Phosphorus (2.6-4.7) mg/dL Magnesium 2.1 (1.8-2.4) mg/dL Total Bilirubin (0.2-1.0) mg/dL AST (15-37) IU/L ALT (14-63) IU/L Alkaline Phosphatase (46-116) U/L Troponin I (0.000-0.056) ng/mL C-Reactive Protein < 0.20 (0.00-0.90) mg/dL Total Protein (6.4-8.2) g/dL Albumin (3.4-5.0) g/dL Globulin (2.6-4.0) g/dL Albumin/Globulin Ratio (0.9-1.6) TSH 3rd Generation (0.36-3.74) uIU/mL 01/03/20 01/03/20 Range/Units 05:40 05:40 WBC 6.26 (4.0-11.0) K/uL RBC 5.11 (4.50-5.90) M/uL Hgb 14.6 (13.0-17.0) g/dL Hct 43.7 (38.0-50.0) % MCV 85.5 (80.0-98.0) fL MCH 28.6 (27.0-32.0) pg MCHC 33.4 (31.0-37.0) g/dL RDW Std Deviation 43.2 (28.0-62.0) fl RDW Coeff of Corky 14 (11.0-15.0) % Plt Count 215 (150-400) K/uL MPV 9.40 (7.40-12.00) fL Neut % (Auto) 44.3 L (48.0-80.0) % Lymph % (Auto) 38.5 (16.0-40.0) % Weston % (Auto) 10.1 (0.0-15.0) % Eos % (Auto) 6.5 (0.0-7.0) % Baso % (Auto) 0.6 (0.0-1.5) % Neut # (Auto) 2.8 (1.4-5.7) K/uL Lymph # (Auto) 2.4 (0.6-2.4) K/uL Weston # (Auto) 0.6 (0.0-0.8) K/uL Eos # (Auto) 0.4 (0.0-0.7) K/uL Baso # (Auto) 0.0 (0.0-0.1) K/uL Nucleated RBC % 0.0 /100WBC Nucleated RBCs # 0 K/uL ESR (0-19) mm/hr INR APTT (18.6-31.3) SEC Sodium 142 (136-148) mmol/L Potassium 3.8 (3.5-5.1) mmol/L Chloride 107 (98-107) mmol/L Carbon Dioxide 26.2 (21.0-32.0) mmol/L BUN 10 (7.0-18.0) mg/dL Creatinine 1.0 (0.8-1.3) mg/dL Est Cr Clr Drug Dosing 86.18 Estimated GFR (MDRD) > 60.0 ml/min Glucose 106 (74-106) mg/dL Calcium 8.4 L (8.5-10.1) mg/dL Phosphorus 3.0 (2.6-4.7) mg/dL Magnesium 2.1 (1.8-2.4) mg/dL Total Bilirubin (0.2-1.0) mg/dL AST (15-37) IU/L ALT (14-63) IU/L Alkaline Phosphatase (46-116) U/L Troponin I (0.000-0.056) ng/mL C-Reactive Protein (0.00-0.90) mg/dL Total Protein (6.4-8.2) g/dL Albumin (3.4-5.0) g/dL Globulin (2.6-4.0) g/dL Albumin/Globulin Ratio (0.9-1.6) TSH 3rd Generation 1.77 (0.36-3.74) uIU/mL Med Orders - Current: Current Medications Acetaminophen (Tylenol) 650 mg PO Q6H PRN PRN Reason: Headache/Pain Last Admin: 01/03/20 08:51 Dose: 650 mg Documented by: Albuterol/Ipratropium (Duoneb 3.0-0.5 Mg/3 Ml) 3 ml NEB Q4HRRT PRN PRN Reason: Shortness of Breath Aspirin (Aspirin) 325 mg PO DAILY [facility] Atorvastatin Calcium (Lipitor) 80 mg PO BEDTIME JOSE Ketorolac Tromethamine (Acular 0.5% Ophth Soln) 5 ml .XX QID JOSE Latanoprost (Xalatan 0.005% Ophth Soln) 2.5 ml EYELF BEDTIME JOSE Prednisolone Acetate (Pred Forte 1% Ophth Susp) 10 ml .XX QID JOSE Timolol Maleate (Timoptic 0.5% Ophth Soln) 5 ml .XX BID JOSE Discontinued Medications Acetaminophen (Tylenol Extra Strength) 1,000 mg PO ONETIME ONE Stop: 01/02/20 17:49 Last Admin: 01/02/20 18:07 Dose: 1,000 mg Documented by: Aspirin (Aspirin) 81 mg PO DAILY [facility] Last Admin: 01/03/20 08:00 Dose: 81 mg Documented by: Atorvastatin Calcium (Lipitor) 20 mg PO BEDTIME JOSE Atorvastatin Calcium (Lipitor) 40 mg PO BEDTIME [facility] Last Admin: 01/02/20 20:24 Dose: 20 mg Documented by: Clopidogrel Bisulfate (Plavix) 300 mg PO ONETIME ONE Stop: 01/02/20 17:33 Last Admin: 01/02/20 17:39 Dose: 300 mg Documented by: Prochlorperazine Edisylate 5 (mg/ Sodium Chloride) 51 mls @ 150 mls/hr IV ONETIME ONE Stop: 01/02/20 18:08 Last Admin: 01/02/20 19:49 Dose: Not Given Documented by: Iopamidol (Isovue-370 (76%)) 50 ml IV ONETIME ONE Stop: 01/02/20 19:13 Last Admin: 01/02/20 19:12 Dose: 50 ml Documented by: Iopamidol (Isovue-370 (76%)) 50 ml IV ONETIME ONE Stop: 01/02/20 19:13 Last Admin: 01/02/20 19:13 Dose: 50 ml Documented by: Latanoprost (Xalatan 0.005% Ophth Soln) 2.5 ml EYEBOTH QID JOSE Potassium Chloride (Klor-Con M20) 20 meq PO ONETIME ONE Stop: 01/02/20 19:55 Last Admin: 01/02/20 20:24 Dose: 20 meq Documented by: Timolol Maleate (Timoptic 0.5% Ophth Soln) 5 ml .XX QID JOSE - Exam General: Alert, Oriented, Cooperative HEENT: Pupils Equal, Pupils Reactive, Other (visual acuity checked, rpeorts R eye as normal. L eye noted to have hazy film, as it has for the past 3 days. ) Lungs: Clear to Auscultation, Normal Respiratory Effort Cardiovascular: Regular Rate, Regular Rhythm GI/Abdominal Exam: Normal Bowel Sounds, Soft, Non-Tender Extremities: Normal Inspection, Normal Range of Motion, Non-Tender, No Pedal Edema Skin: Other (Very hypersensitive to touch and all over skin has pain. ) Neurological: Normal Gait, Normal Speech, Strength Equal Bilateral Psy/Mental Status: Alert, Normal Affect, Normal Mood Sepsis Event Note - Evaluation Sepsis Screening Result: No Definite Risk - Focused Exam Vital Signs: Vital Signs Temp Pulse Resp BP Pulse Ox 01/03/20 08:00 99 F 57 L 16 149/83 H 98 01/03/20 05:30 97.3 F 60 18 161/101 H 96 Date Exam was Performed: 01/03/20 Time Exam was Performed: 15:08 - Problem List & Annotations (1) Facial droop SNOMED Code(s): 43610516 Code(s): R29.810 - FACIAL WEAKNESS Status: Acute Current Visit: Yes (2) TIA (transient ischemic attack) SNOMED Code(s): 562811739 Code(s): G45.9 - TRANSIENT CEREBRAL ISCHEMIC ATTACK, UNSPECIFIED Status: Resolved Current Visit: Yes (3) Headache SNOMED Code(s): 07141699 Code(s): R51 - HEADACHE Status: Acute Current Visit: Yes (4) Vision changes SNOMED Code(s): 707863722 Code(s): H53.9 - UNSPECIFIED VISUAL DISTURBANCE Status: Acute Current Visit: Yes (5) HLD (hyperlipidemia) SNOMED Code(s): 08738708 Code(s): E78.5 - HYPERLIPIDEMIA, UNSPECIFIED Status: Chronic Current Visit: Yes (6) HTN (hypertension) SNOMED Code(s): 19760407 Code(s): I10 - ESSENTIAL (PRIMARY) HYPERTENSION Status: Chronic Current Visit: Yes (7) Fibromyalgia SNOMED Code(s): 285608158 Code(s): M79.7 - FIBROMYALGIA Status: Chronic Current Visit: Yes (8) Macula-off rhegmatogenous retinal detachment SNOMED Code(s): 912528027 Code(s): H33.009 - UNSP RETINAL DETACHMENT WITH RETINAL BREAK, UNSPECIFIED EYE Status: Chronic Current Visit: Yes Qualifiers: Laterality: left Qualified Code(s): H33.002 - Unspecified retinal detachment with retinal break, left eye - Problem List Review Problem List Initiated/Reviewed/Updated: Yes - My Orders Last 24 Hours: My Active Orders 01/03/20 11:02 Echo Comp wo Cont [US] Routine 01/03/20 11:13 Notify Provider Consults [RC] ASDIRECTED Consult to Physician [CONS] Urgent 01/03/20 21:00 atorvaSTATin [Lipitor] 80 mg PO BEDTIME 01/04/20 09:00 Aspirin 325 mg PO DAILY - Plan Plan:: 54 y/o M admitted for concern of stroke 1. L facial droop/headache -TIA vs CVA. MRI to be obtained this afternoon. 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 - Facial droop gone. headache remains. No other focal deficits - Is having a film over his left visual field, I have a call to his eye doctor, Dr Mims in [place]. He is does not want any MD contact from [place]. - MOnit on telemetry, will need ZIO patch on discharge - Vitals Q4 hours, Q4 Neuro checks with [facility] - CTA neck noted to have ulcerated plaque in distal left common carotid artery but no acute occlusion/ stenosis - Increase dose of statin to 80 mg daily, discussed evidence of this at length with patient. - Continue ASA 325 daily, as patient was taking this at home. - Obtain TTE - Dr. Malloy, Neurology contacted and will see patient after MRI. - Reports he has tried many medications for headaches in the past. Depakote and opiods. NSAIDS and ice tend to help the best. - Limits exam, very scared for anyone to touch eyes. - Allow permissive HTN for now until CVA ruled out. VTE prophylaxis: SCDs Dispo: Awaiting MRI and to speak with Dr Mims regarding visual acuity and need for more urgent ophthalmology consultation. As patient becomes very angry in regards to MDs from [place] due to eye concerns.
[2020-01-03] MEDS: Gadobenate Dimeglumine 529 MG/ML 20 ML SDV IVPUSH STA ×2 (12:45→14:13)
[2020-01-03] MEDS ORDERED: Timolol Maleate 0.5% Ophth Soln 15 ML Bottle EYELF SCH (13:23)
--- NOTE | 2020-01-03 13:48 | MR ---
MRI brain Technique: T1 sagittal and coronal; T1, T2, FLAIR and diffusion axial Comparison: Prior head CT study of 01/02/20. Findings: No definite diffusion abnormalities are seen. Small areas of increased signal is scattered within the subcortical and periventricular white matter which is most likely due to small vessel ischemic demyelination change. There is an area of encephalomalacia compatible with previous cortical infarct within the posterior left temporal lobe (this was thought to be within the parietal region on prior head CT studies which is felt to be incorrect and is within the posterior temporal lobe) which shows mild surrounding increased signal on the FLAIR sequence most likely due to adjacent white matter demyelination on an ischemic basis. No other abnormal signal is seen within the brain parenchyma. No midline shift or mass-effect is seen. Normal signal void is seen within the major cerebral arteries within the skull base. Visualized mastoid sinuses and visualized paranasal sinuses show nothing acute. Impression: 1. Senescent change as noted above. 2. No acute diffusion abnormalities are appreciated. Diagnostic code #2 This report was dictated in MDT
[2020-01-03] MEDS ORDERED: Propranolol 60 MG Cap.ER PO SCH (15:00)
--- NOTE | 2020-01-03 15:10 | PCM.DCSUM1 ---
Discharge Summary - Hospital Course Brief History: 54-year-old male past medical history of HTN, HLD, CVA presenting to ER with c/o left-sided facial droop. Patient states that in the middle the night, patient woke up with a left-sided retro-orbital headache which was persistent in nature, He took several doses of ibuprofen without relief. Patient states this afternoon around 1pm, he noticed he had developed left-sided facial droop along with burning sensation, tingling and some weakness to the left upper and lower extremities. In the ER patient reported improvement in his symptoms but no complete resolution Denies any history of head trauma. According to the patient he was being evaluated by his PCP 5 days ago for possible TIA. 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 CTA of head and neck was done, showed no acute occlusion. EKG showed no acute ST/T wave ischemic changes. CXR unremarkable, Neurology radiation protection engineer at [facility] was paged recommended no TPA, and to administer full dose of Plavix. Patient denied chest pain, syncope, palpitations, N/V, abdominal pain, dysuria, hematuria. Patient is being admitted for further work up. He also stated that his vision is blurry since 1pm yesterday. 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 States his surgery had some complications so he has to get it redone as he sees double vision since his surgery. Diagnosis: Stroke: No - Discharge Data Discharge Date: 01/03/20 Discharge Disposition: Home, Self-Care 01 Condition: Good - Referral to Home Health Primary Care Physician: PCP None - Discharge Diagnosis/Problem(s) (1) Facial droop SNOMED Code(s): 02578937 ICD Code: R29.810 - FACIAL WEAKNESS Status: Acute (2) Headache SNOMED Code(s): 06835461 ICD Code: R51 - HEADACHE Status: Acute (3) Vision changes SNOMED Code(s): 992194280 ICD Code: H53.9 - UNSPECIFIED VISUAL DISTURBANCE Status: Acute (4) HLD (hyperlipidemia) SNOMED Code(s): 75847787 ICD Code: E78.5 - HYPERLIPIDEMIA, UNSPECIFIED Status: Chronic (5) HTN (hypertension) SNOMED Code(s): 25822338 ICD Code: I10 - ESSENTIAL (PRIMARY) HYPERTENSION Status: Chronic (6) Fibromyalgia SNOMED Code(s): 482841395 ICD Code: M79.7 - FIBROMYALGIA Status: Chronic (7) Macula-off rhegmatogenous retinal detachment SNOMED Code(s): 087054832 ICD Code: H33.009 - UNSP RETINAL DETACHMENT WITH RETINAL BREAK, UNSPECIFIED EYE Status: Chronic Qualifiers: Laterality: left Qualified Code(s): H33.002 - Unspecified retinal detachment with retinal break, left eye - Patient Summary/Data Consults: Consultations 01/03/20 11:13 Consult to Physician [CONS] Urgent Hospital Course: Admitting Diagnoses: L facial droop TIA vs CVA Migraine Discharge Diagnoses: Migraine TIA PMH: Retinal detachment with visual acuity issues to L CAD HTN HLD PTSD Fibromyalgia Marijuana use Nicholas was admitted and thoroughly worked up for possible CVA. CTA neck revealed some ulcerated plaque in L carotid, statin therapy increased to Atorvastatin 80 mg daily and ASA continued. MRI brain wo/w ordered, contrast images not obtained due to headache per tech. Possible encephalomalacia noted in L temporal region, reimaging to be obtained with Dr Malloy as outpatient. No acute infarct noted. Dr Malloy examined patient, recommended continued statin and ASA along with starting Propranolol for headaches. Nicholas was agreeable to this and very happy with work up. ECHO obtained and pending. ZIO patch placed x 14 days. He already has follow up with PCP as well as Laura Swenson NP Neurology and Cardiology. He is to return to the ED or clinic if concerns should arise. - Patient Instructions Diet: Heart Healthy Diet Activity: As Tolerated, No Strenuous Activities, Rest and Relax Today Driving: Do Not Drive Showering/Bathing: May Shower Notify Provider of: Fever, Increased Pain, Swelling and Redness, Drainage, Nausea and/or Vomiting Other/Special Instructions: Zio patch for 14 days. - Discharge Plan *PRESCRIPTION DRUG MONITORING PROGRAM REVIEWED*: Not Applicable *COPY OF PRESCRIPTION DRUG MONITORING REPORT IN PATIENT AL: Not Applicable Prescriptions/Med Rec: Propranolol [Inderal LA] 60 mg PO DAILY #30 cap.er atorvaSTATin [Lipitor] 80 mg PO BEDTIME #60 tablet Home Medications: Home Meds Brinzolamide/Brimonidine Tart [Simbrinza 1%-0.2% Eye Drops] 1 ml OP BEDTIME 10/25/19 [History] Latanoprost 2.5 ml OP BEDTIME 10/25/19 [History] prednisoLONE acetate [Pred Mild] 10 ml OP QID 10/25/19 [History] timoloL maleate [Timoptic 0.5% Ophth Soln] 5 ml .XX BID 10/25/19 [History] Ketorolac Tromethamine [Acular] 5 ml OP QID 01/02/20 [History] Acetaminophen [Tylenol] 650 mg PO Q6H PRN tablet 01/03/20 [Rx] Aspirin 325 mg PO DAILY tablet 01/03/20 [Rx] Propranolol [Inderal LA] 60 mg PO DAILY #30 cap.er 01/03/20 [Rx] atorvaSTATin [Lipitor] 80 mg PO BEDTIME #60 tablet 01/03/20 [Rx] Oxygen Therapy Mode: Room Air Patient Handouts: Propranolol extended-release capsules, Transient Ischemic Attack, [id number], Atorvastatin tablets Referrals: [facility] [Outside] LeelaOctober, FUR GLAZER [Nurse Practitioner] - 01/12/20 9:30 am (Arrive 15 minutes early with a phot ID, insurance card, and a mask. ) Eloy Gamboa MD [Physician] - 01/16/20 9:30 am - Discharge Summary/Plan Comment DC Time >30 min.: No - Patient Data Vitals - Most Recent: Last Vital Signs Temp 98 F 01/03/20 12:00 Pulse 63 01/03/20 12:00 Resp 20 01/03/20 12:00 BP 173/95 H 01/03/20 12:00 Pulse Ox 97 01/03/20 12:00 Weight - Most Recent: 105.5 kg I&O - Last 24 hours: Intake & Output 01/03/20 01/03/20 01/03/20 06:59 14:59 22:59 Intake Total 750 Output Total 1950 Balance -1200 Lab Results - Last 24 hrs: Laboratory Results - last 24 hr 01/02/20 01/02/20 01/02/20 Range/Units 16:43 16:43 16:43 WBC 7.84 (4.0-11.0) K/uL RBC 5.05 (4.50-5.90) M/uL Hgb 14.7 (13.0-17.0) g/dL Hct 43.6 (38.0-50.0) % MCV 86.3 (80.0-98.0) fL MCH 29.1 (27.0-32.0) pg MCHC 33.7 (31.0-37.0) g/dL RDW Std Deviation 43.8 (28.0-62.0) fl RDW Coeff of Corky 14 (11.0-15.0) % Plt Count 240 (150-400) K/uL MPV 9.50 (7.40-12.00) fL Neut % (Auto) 51.5 (48.0-80.0) % Lymph % (Auto) 35.8 (16.0-40.0) % Fergus % (Auto) 7.7 (0.0-15.0) % Eos % (Auto) 4.5 (0.0-7.0) % Baso % (Auto) 0.5 (0.0-1.5) % Neut # (Auto) 4.0 (1.4-5.7) K/uL Lymph # (Auto) 2.8 H (0.6-2.4) K/uL Fergus # (Auto) 0.6 (0.0-0.8) K/uL Eos # (Auto) 0.4 (0.0-0.7) K/uL Baso # (Auto) 0.0 (0.0-0.1) K/uL Nucleated RBC % 0.0 /100WBC Nucleated RBCs # 0 K/uL ESR (0-19) mm/hr INR 0.93 APTT 28.5 (18.6-31.3) SEC Sodium 142 (136-148) mmol/L Potassium 3.6 (3.5-5.1) mmol/L Chloride 106 (98-107) mmol/L Carbon Dioxide 27.5 (21.0-32.0) mmol/L BUN 9 (7.0-18.0) mg/dL Creatinine 0.9 (0.8-1.3) mg/dL Est Cr Clr Drug Dosing TNP Estimated GFR (MDRD) > 60.0 ml/min Glucose 116 H (74-106) mg/dL Calcium 8.7 (8.5-10.1) mg/dL Phosphorus (2.6-4.7) mg/dL Magnesium (1.8-2.4) mg/dL Total Bilirubin 0.4 (0.2-1.0) mg/dL AST 18 (15-37) IU/L ALT 31 (14-63) IU/L Alkaline Phosphatase 58 (46-116) U/L Troponin I <0.050 (0.000-0.056) ng/mL C-Reactive Protein (0.00-0.90) mg/dL Total Protein 7.1 (6.4-8.2) g/dL Albumin 4.0 (3.4-5.0) g/dL Globulin 3.1 (2.6-4.0) g/dL Albumin/Globulin Ratio 1.3 (0.9-1.6) TSH 3rd Generation (0.36-3.74) uIU/mL 01/02/20 01/02/20 01/02/20 Range/Units 16:43 16:43 16:43 WBC (4.0-11.0) K/uL RBC (4.50-5.90) M/uL Hgb (13.0-17.0) g/dL Hct (38.0-50.0) % MCV (80.0-98.0) fL MCH (27.0-32.0) pg MCHC (31.0-37.0) g/dL RDW Std Deviation (28.0-62.0) fl RDW Coeff of Corky (11.0-15.0) % Plt Count (150-400) K/uL MPV (7.40-12.00) fL Neut % (Auto) (48.0-80.0) % Lymph % (Auto) (16.0-40.0) % Fergus % (Auto) (0.0-15.0) % Eos % (Auto) (0.0-7.0) % Baso % (Auto) (0.0-1.5) % Neut # (Auto) (1.4-5.7) K/uL Lymph # (Auto) (0.6-2.4) K/uL Fergus # (Auto) (0.0-0.8) K/uL Eos # (Auto) (0.0-0.7) K/uL Baso # (Auto) (0.0-0.1) K/uL Nucleated RBC % /100WBC Nucleated RBCs # K/uL ESR 3 (0-19) mm/hr INR APTT (18.6-31.3) SEC Sodium (136-148) mmol/L Potassium (3.5-5.1) mmol/L Chloride (98-107) mmol/L Carbon Dioxide (21.0-32.0) mmol/L BUN (7.0-18.0) mg/dL Creatinine (0.8-1.3) mg/dL Est Cr Clr Drug Dosing Estimated GFR (MDRD) ml/min Glucose (74-106) mg/dL Calcium (8.5-10.1) mg/dL Phosphorus (2.6-4.7) mg/dL Magnesium 2.1 (1.8-2.4) mg/dL Total Bilirubin (0.2-1.0) mg/dL AST (15-37) IU/L ALT (14-63) IU/L Alkaline Phosphatase (46-116) U/L Troponin I (0.000-0.056) ng/mL C-Reactive Protein < 0.20 (0.00-0.90) mg/dL Total Protein (6.4-8.2) g/dL Albumin (3.4-5.0) g/dL Globulin (2.6-4.0) g/dL Albumin/Globulin Ratio (0.9-1.6) TSH 3rd Generation (0.36-3.74) uIU/mL 01/03/20 01/03/20 Range/Units 05:40 05:40 WBC 6.26 (4.0-11.0) K/uL RBC 5.11 (4.50-5.90) M/uL Hgb 14.6 (13.0-17.0) g/dL Hct 43.7 (38.0-50.0) % MCV 85.5 (80.0-98.0) fL MCH 28.6 (27.0-32.0) pg MCHC 33.4 (31.0-37.0) g/dL RDW Std Deviation 43.2 (28.0-62.0) fl RDW Coeff of Corky 14 (11.0-15.0) % Plt Count 215 (150-400) K/uL MPV 9.40 (7.40-12.00) fL Neut % (Auto) 44.3 L (48.0-80.0) % Lymph % (Auto) 38.5 (16.0-40.0) % Fergus % (Auto) 10.1 (0.0-15.0) % Eos % (Auto) 6.5 (0.0-7.0) % Baso % (Auto) 0.6 (0.0-1.5) % Neut # (Auto) 2.8 (1.4-5.7) K/uL Lymph # (Auto) 2.4 (0.6-2.4) K/uL Fergus # (Auto) 0.6 (0.0-0.8) K/uL Eos # (Auto) 0.4 (0.0-0.7) K/uL Baso # (Auto) 0.0 (0.0-0.1) K/uL Nucleated RBC % 0.0 /100WBC Nucleated RBCs # 0 K/uL ESR (0-19) mm/hr INR APTT (18.6-31.3) SEC Sodium 142 (136-148) mmol/L Potassium 3.8 (3.5-5.1) mmol/L Chloride 107 (98-107) mmol/L Carbon Dioxide 26.2 (21.0-32.0) mmol/L BUN 10 (7.0-18.0) mg/dL Creatinine 1.0 (0.8-1.3) mg/dL Est Cr Clr Drug Dosing 86.18 Estimated GFR (MDRD) > 60.0 ml/min Glucose 106 (74-106) mg/dL Calcium 8.4 L (8.5-10.1) mg/dL Phosphorus 3.0 (2.6-4.7) mg/dL Magnesium 2.1 (1.8-2.4) mg/dL Total Bilirubin (0.2-1.0) mg/dL AST (15-37) IU/L ALT (14-63) IU/L Alkaline Phosphatase (46-116) U/L Troponin I (0.000-0.056) ng/mL C-Reactive Protein (0.00-0.90) mg/dL Total Protein (6.4-8.2) g/dL Albumin (3.4-5.0) g/dL Globulin (2.6-4.0) g/dL Albumin/Globulin Ratio (0.9-1.6) TSH 3rd Generation 1.77 (0.36-3.74) uIU/mL Med Orders - Current: Current Medications Acetaminophen (Tylenol) 650 mg PO Q6H PRN PRN Reason: Headache/Pain Last Admin: 01/03/20 08:51 Dose: 650 mg Documented by: Albuterol/Ipratropium (Duoneb 3.0-0.5 Mg/3 Ml) 3 ml NEB Q4HRRT PRN PRN Reason: Shortness of Breath Aspirin (Aspirin) 325 mg PO DAILY JOSE Atorvastatin Calcium (Lipitor) 80 mg PO BEDTIME JOSE Ketorolac Tromethamine (Acular 0.5% Ophth Soln) 5 ml .XX QID JOSE Latanoprost (Xalatan 0.005% Ophth Soln) 2.5 ml EYELF BEDTIME JOSE Prednisolone Acetate (Pred Forte 1% Ophth Susp) 0 ml EYELF Q4HR JOSE Propranolol HCl (Inderal La) 60 mg PO DAILY JOSE Timolol Maleate (Timoptic 0.5% Ophth Soln) 0 ml EYELF BID JOSE Discontinued Medications Acetaminophen (Tylenol Extra Strength) 1,000 mg PO ONETIME ONE Stop: 01/02/20 17:49 Last Admin: 01/02/20 18:07 Dose: 1,000 mg Documented by: Aspirin (Aspirin) 81 mg PO DAILY [facility] Last Admin: 01/03/20 08:00 Dose: 81 mg Documented by: Atorvastatin Calcium (Lipitor) 20 mg PO BEDTIME JOSE Atorvastatin Calcium (Lipitor) 40 mg PO BEDTIME [facility] Last Admin: 01/02/20 20:24 Dose: 20 mg Documented by: Clopidogrel Bisulfate (Plavix) 300 mg PO ONETIME ONE Stop: 01/02/20 17:33 Last Admin: 01/02/20 17:39 Dose: 300 mg Documented by: Gadobenate Dimeglumine (Multihance) 20 ml IVPUSH ONETIME STA Stop: 01/03/20 12:45 Last Admin: 01/03/20 14:13 Dose: Not Given Documented by: Prochlorperazine Edisylate 5 (mg/ Sodium Chloride) 51 mls @ 150 mls/hr IV ONETIME ONE Stop: 01/02/20 18:08 Last Admin: 01/02/20 19:49 Dose: Not Given Documented by: Iopamidol (Isovue-370 (76%)) 50 ml IV ONETIME ONE Stop: 01/02/20 19:13 Last Admin: 01/02/20 19:12 Dose: 50 ml Documented by: Iopamidol (Isovue-370 (76%)) 50 ml IV ONETIME ONE Stop: 01/02/20 19:13 Last Admin: 01/02/20 19:13 Dose: 50 ml Documented by: Latanoprost (Xalatan 0.005% Ophth Soln) 2.5 ml EYEBOTH QID JOSE Potassium Chloride (Klor-Con M20) 20 meq PO ONETIME ONE Stop: 01/02/20 19:55 Last Admin: 01/02/20 20:24 Dose: 20 meq Documented by: Prednisolone Acetate (Pred Forte 1% Ophth Susp) 10 ml .XX QID JOSE Timolol Maleate (Timoptic 0.5% Ophth Soln) 5 ml .XX QID JOSE Timolol Maleate (Timoptic 0.5% Ophth Soln) 5 ml .XX BID JOSE
[2020-01-03] MEDS ORDERED: prednisoLONE Acetate 1% Ophth Susp 5 ML Bottle EYELF SCH (16:00)
--- NOTE | 2020-01-03 16:17 | PCM.CONS ---
H&P History of Present Illness - General Date of Service: 01/03/20 Admit Problem/Dx: Admission Diagnosis/Problem Admission Diagnosis/Problem Ischemic stroke - History of Present Illness Initial Comments - Free Text/Narative: He started having headaches in July 2018 after left retinal detachment. They are left sided and associated with pain. He has associated light sensitivity in the left eye with headache as well as sound sensitivity. He has seen rainbow and lightening strike at onset of the headache. They last 1-2 day and occur twice a week, so about 3 headache days / week. He has tried amitriptyline and Depakote without benefit. Cannabis is helpful. 2 weeks ago he had severe left sided headache associated with right arm heaviness. He saw Dr. Gamboa on December 28. Per Dr. Jason note, he reported a headache for 2 weeks. He also complained about a heavy feeling on his right arm, coarse speech that started at the time the headache started. He report that the headache that started 2 weeks ago resolved. The night before last, he had severe headaches associated with left bye blurriness and left upper and lower limb numbness and tingling. He developed drooping of the left side of the face. He presented to the ED yesterday. He was diagnosed with CAD years ago, no intervention. His father of [place] in his 40s. He has a history of left retinal detachment 100% and 90% right, which was repaired. Head Pain Score (Numeric/FACES): 6 - Related Data Allergies/Adverse Reactions: Allergies Allergy/AdvReac Type Severity Reaction Status Date / Time No Known Allergies Allergy Verified 01/02/20 21:06 Home Medications: Home Meds Brinzolamide/Brimonidine Tart [Simbrinza 1%-0.2% Eye Drops] 1 ml OP BEDTIME 10/25/19 [History] Latanoprost 2.5 ml OP BEDTIME 10/25/19 [History] prednisoLONE acetate [Pred Mild] 10 ml OP QID 10/25/19 [History] timoloL maleate [Timoptic 0.5% Ophth Soln] 5 ml .XX BID 10/25/19 [History] Ketorolac Tromethamine [Acular] 5 ml OP QID 01/02/20 [History] Acetaminophen [Tylenol] 650 mg PO Q6H PRN tablet 01/03/20 [Rx] Aspirin 325 mg PO DAILY tablet 01/03/20 [Rx] Propranolol [Inderal LA] 60 mg PO DAILY #30 cap.er 01/03/20 [Rx] atorvaSTATin [Lipitor] 80 mg PO BEDTIME #60 tablet 01/03/20 [Rx] Past Medical History HEENT History: Reports: Retinal Detachment Cardiovascular History: Reports: None Other Cardiovascular History: Hyperlipidemia Respiratory History: Reports: None Gastrointestinal History: Reports: None Genitourinary History: Reports: Other (See Below) Other Genitourinary History: "L testical problems since in ." Musculoskeletal History: Reports: None Other Musculoskeletal History: R leg, R knee Neurological History: Reports: None Psychiatric History: Reports: None Endocrine/Metabolic History: Reports: None Hematologic History: Reports: None Immunologic History: Reports: None Oncologic (Cancer) History: Reports: None Dermatologic History: Reports: None - Infectious Disease History Infectious Disease History: Reports: Chicken Pox - Past Surgical History Head Surgeries/Procedures: Reports: None HEENT Surgical History: Reports: None Cardiovascular Surgical History: Reports: None Respiratory Surgical History: Reports: None GI Surgical History: Reports: None Male Surgical History: Reports: None Endocrine Surgical History: Reports: None Neurological Surgical History: Reports: None Musculoskeletal Surgical History: Reports: None Oncologic Surgical History: Reports: None Dermatological Surgical History: Reports: None Social & Family History - Family History Family Medical History: Noncontributory Cardiac: Reports: [place] Other Cardiac Family History: Patient states father of [place] at 41. Patient's mother has had [place]'s. Neurological: Reports: CVA - Tobacco Use Smoking Status *Q: Never Smoker Used Tobacco, but Quit: Yes Month/Year Tobacco Last Used: 12/2014 Second Hand Smoke Exposure: No - Caffeine Use Caffeine Use: Reports: None Caffeine Use Comment: 20oz every day - Recreational Drug Use Recreational Drug Use: Yes Drug Use in Last 12 Months: Yes Recreational Drug Type: Reports: Marijuana/Hashish Other Recreational Drug Type: Patient states he has prescription for marijuana Recreational Drug Use Frequency: Daily H&P Review of Systems - Review of Systems: Review Of Systems: See Below General: Reports: Weakness HEENT: Reports: Eye Pain, Headaches, Visual Changes Pulmonary: Reports: Shortness of Breath Cardiovascular: Reports: Dyspnea on Exertion Gastrointestinal: Reports: Abdominal Pain Musculoskeletal: Reports: Back Pain Skin: Reports: No Symptoms Neurological: Reports: Dizziness, Headache Hematologic/Lymphatic: Reports: No Symptoms Exam - Exam Exam: See Below (Constitutional: No acute distress) - Vital Signs Vital Signs: Last Vital Signs Temp 36.6 C 01/03/20 12:00 Pulse 63 01/03/20 12:00 Resp 20 01/03/20 12:00 BP 173/95 H 01/03/20 12:00 Pulse Ox 97 01/03/20 12:00 Weight: 105.5 kg - Patient Data Lab Results Last 24 hrs: Laboratory Results - last 24 hr 01/02/20 01/02/20 01/02/20 Range/Units 16:43 16:43 16:43 WBC 7.84 (4.0-11.0) K/uL RBC 5.05 (4.50-5.90) M/uL Hgb 14.7 (13.0-17.0) g/dL Hct 43.6 (38.0-50.0) % MCV 86.3 (80.0-98.0) fL MCH 29.1 (27.0-32.0) pg MCHC 33.7 (31.0-37.0) g/dL RDW Std Deviation 43.8 (28.0-62.0) fl RDW Coeff of Corky 14 (11.0-15.0) % Plt Count 240 (150-400) K/uL MPV 9.50 (7.40-12.00) fL Neut % (Auto) 51.5 (48.0-80.0) % Lymph % (Auto) 35.8 (16.0-40.0) % Ellis % (Auto) 7.7 (0.0-15.0) % Eos % (Auto) 4.5 (0.0-7.0) % Baso % (Auto) 0.5 (0.0-1.5) % Neut # (Auto) 4.0 (1.4-5.7) K/uL Lymph # (Auto) 2.8 H (0.6-2.4) K/uL Ellis # (Auto) 0.6 (0.0-0.8) K/uL Eos # (Auto) 0.4 (0.0-0.7) K/uL Baso # (Auto) 0.0 (0.0-0.1) K/uL Nucleated RBC % 0.0 /100WBC Nucleated RBCs # 0 K/uL ESR (0-19) mm/hr INR 0.93 APTT 28.5 (18.6-31.3) SEC Sodium 142 (136-148) mmol/L Potassium 3.6 (3.5-5.1) mmol/L Chloride 106 (98-107) mmol/L Carbon Dioxide 27.5 (21.0-32.0) mmol/L BUN 9 (7.0-18.0) mg/dL Creatinine 0.9 (0.8-1.3) mg/dL Est Cr Clr Drug Dosing TNP Estimated GFR (MDRD) > 60.0 ml/min Glucose 116 H (74-106) mg/dL Calcium 8.7 (8.5-10.1) mg/dL Phosphorus (2.6-4.7) mg/dL Magnesium (1.8-2.4) mg/dL Total Bilirubin 0.4 (0.2-1.0) mg/dL AST 18 (15-37) IU/L ALT 31 (14-63) IU/L Alkaline Phosphatase 58 (46-116) U/L Troponin I <0.050 (0.000-0.056) ng/mL C-Reactive Protein (0.00-0.90) mg/dL Total Protein 7.1 (6.4-8.2) g/dL Albumin 4.0 (3.4-5.0) g/dL Globulin 3.1 (2.6-4.0) g/dL Albumin/Globulin Ratio 1.3 (0.9-1.6) TSH 3rd Generation (0.36-3.74) uIU/mL 01/02/20 01/02/20 01/02/20 Range/Units 16:43 16:43 16:43 WBC (4.0-11.0) K/uL RBC (4.50-5.90) M/uL Hgb (13.0-17.0) g/dL Hct (38.0-50.0) % MCV (80.0-98.0) fL MCH (27.0-32.0) pg MCHC (31.0-37.0) g/dL RDW Std Deviation (28.0-62.0) fl RDW Coeff of Corky (11.0-15.0) % Plt Count (150-400) K/uL MPV (7.40-12.00) fL Neut % (Auto) (48.0-80.0) % Lymph % (Auto) (16.0-40.0) % Ellis % (Auto) (0.0-15.0) % Eos % (Auto) (0.0-7.0) % Baso % (Auto) (0.0-1.5) % Neut # (Auto) (1.4-5.7) K/uL Lymph # (Auto) (0.6-2.4) K/uL Ellis # (Auto) (0.0-0.8) K/uL Eos # (Auto) (0.0-0.7) K/uL Baso # (Auto) (0.0-0.1) K/uL Nucleated RBC % /100WBC Nucleated RBCs # K/uL ESR 3 (0-19) mm/hr INR APTT (18.6-31.3) SEC Sodium (136-148) mmol/L Potassium (3.5-5.1) mmol/L Chloride (98-107) mmol/L Carbon Dioxide (21.0-32.0) mmol/L BUN (7.0-18.0) mg/dL Creatinine (0.8-1.3) mg/dL Est Cr Clr Drug Dosing Estimated GFR (MDRD) ml/min Glucose (74-106) mg/dL Calcium (8.5-10.1) mg/dL Phosphorus (2.6-4.7) mg/dL Magnesium 2.1 (1.8-2.4) mg/dL Total Bilirubin (0.2-1.0) mg/dL AST (15-37) IU/L ALT (14-63) IU/L Alkaline Phosphatase (46-116) U/L Troponin I (0.000-0.056) ng/mL C-Reactive Protein < 0.20 (0.00-0.90) mg/dL Total Protein (6.4-8.2) g/dL Albumin (3.4-5.0) g/dL Globulin (2.6-4.0) g/dL Albumin/Globulin Ratio (0.9-1.6) [facility] 3rd Generation (0.36-3.74) uIU/mL 01/03/20 01/03/20 Range/Units 05:40 05:40 WBC 6.26 (4.0-11.0) K/uL RBC 5.11 (4.50-5.90) M/uL Hgb 14.6 (13.0-17.0) g/dL Hct 43.7 (38.0-50.0) % MCV 85.5 (80.0-98.0) fL MCH 28.6 (27.0-32.0) pg MCHC 33.4 (31.0-37.0) g/dL RDW Std Deviation 43.2 (28.0-62.0) fl RDW Coeff of Corky 14 (11.0-15.0) % Plt Count 215 (150-400) K/uL MPV 9.40 (7.40-12.00) fL Neut % (Auto) 44.3 L (48.0-80.0) % Lymph % (Auto) 38.5 (16.0-40.0) % Ellis % (Auto) 10.1 (0.0-15.0) % Eos % (Auto) 6.5 (0.0-7.0) % Baso % (Auto) 0.6 (0.0-1.5) % Neut # (Auto) 2.8 (1.4-5.7) K/uL Lymph # (Auto) 2.4 (0.6-2.4) K/uL Ellis # (Auto) 0.6 (0.0-0.8) K/uL Eos # (Auto) 0.4 (0.0-0.7) K/uL Baso # (Auto) 0.0 (0.0-0.1) K/uL Nucleated RBC % 0.0 /100WBC Nucleated RBCs # 0 K/uL ESR (0-19) mm/hr INR APTT (18.6-31.3) SEC Sodium 142 (136-148) mmol/L Potassium 3.8 (3.5-5.1) mmol/L Chloride 107 (98-107) mmol/L Carbon Dioxide 26.2 (21.0-32.0) mmol/L BUN 10 (7.0-18.0) mg/dL Creatinine 1.0 (0.8-1.3) mg/dL Est Cr Clr Drug Dosing 86.18 Estimated GFR (MDRD) > 60.0 ml/min Glucose 106 (74-106) mg/dL Calcium 8.4 L (8.5-10.1) mg/dL Phosphorus 3.0 (2.6-4.7) mg/dL Magnesium 2.1 (1.8-2.4) mg/dL Total Bilirubin (0.2-1.0) mg/dL AST (15-37) IU/L ALT (14-63) IU/L Alkaline Phosphatase (46-116) U/L Troponin I (0.000-0.056) ng/mL C-Reactive Protein (0.00-0.90) mg/dL Total Protein (6.4-8.2) g/dL Albumin (3.4-5.0) g/dL Globulin (2.6-4.0) g/dL Albumin/Globulin Ratio (0.9-1.6) TSH 3rd Generation 1.77 (0.36-3.74) uIU/mL Result Diagrams: 01/03/20 05:40 01/03/20 05:40 Imaging Impressions Last 24 hrs: Labs 12/29/2019 LDL 208, chol 286, A1 CTA head and neck 01/02/2020 showed no significant stenosis MRI brain 01/03/2020 encephalomalacia in the left temporal lobe, 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 No contrast (study stopped due to headache?) Sepsis Event Note - Evaluation Sepsis Screening Result: No Definite Risk - Focused Exam Vital Signs: Vital Signs Temp Pulse Resp BP BP Pulse Ox 01/03/20 12:00 36.6 C 63 20 173/95 H 97 01/03/20 08:00 37.2 C 57 L 16 149/83 H 98 01/03/20 05:30 36.3 C 60 18 161/101 H 96 Date Exam was Performed: 01/03/20 Time Exam was Performed: 16:12 Consult PN Assessment/Plan Procedures: Procedures CHYLMD TRACH DNA AMP PROBE (10/25/19) CO/MEMBANE DIFFUSE CAPACITY (04/25/19) COMPREHEN METABOLIC PANEL (12/29/19) CT ABD & PELV W/CONTRAST (10/27/18) CT THORAX W/O DYE (12/21/19) EMERGENCY DEPT VISIT (10/25/19) EVALUATION OF WHEEZING (04/25/19) GLYCOSYLATED HEMOGLOBIN TEST (12/29/19) LIPID PANEL (12/29/19) N.GONORRHOEAE DNA AMP PROB (10/25/19) PULM FUNCTION TEST BY GAS (04/25/19) ROUTINE VENIPUNCTURE (12/29/19) URINALYSIS AUTO W/O SCOPE (10/25/19) US EXAM SCROTUM (10/25/19) VASCULAR STUDY (10/25/19) X-RAY EXAM OF HAND (12/29/19) (1) Facial droop SNOMED Code(s): 03703292 Code(s): R29.810 - FACIAL WEAKNESS (2) Left face and left arm tingling SNOMED Code(s): 21087281, 692637170, 708220759 Code(s): R20.2 - PARESTHESIA OF SKIN Assessment:: Impression 1. Headache + transient neurologic deficits TIA and migraine with aura are leading ddx. 2. 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 Rec Start propranolol for migraines, risk of exacerbating respiratory symptoms and impacting effect of inhalers reviewed. -Topamax contraindicated due to remote history of kidney stones Zio patch to eval for atrial fibrillation f/u October [place] 2-3 weeks for treatment of headache/migraine f/u MRI brain in 2-3 months with contrast if he consent. Problem List Initiated/Reviewed/Updated: Yes
[2020-01-03] MEDS ORDERED: atorvaSTATin 40 MG Tab PO SCH (21:00)
[2020-01-03] MEDS ORDERED: Latanoprost 0.005% Ophth Soln 2.5 ML Bottle EYELF SCH (21:00)
[2020-01-04] MEDS ORDERED: Aspirin 325 MG Tab PO SCH (09:00)
== END 2020-01-03 15:45 | disposition home or self-care (01) ==
LOC: MW.ED 16:40 → MW.MS 17:42
PROVIDERS: ADMIT Student in an Organized Health Care Education/Training Program; ATTEND Student in an Organized Health Care Education/Training Program
DX: R29.810 Facial weakness (principal); R20.2 Paresthesia of skin; E78.5 Hyperlipidemia, unspecified; I10 Essential (primary) hypertension; M79.7 Fibromyalgia; G93.89 Other specified disorders of brain; G43.909 Migraine, unspecified, not intractable, without status migrainosus; H33.002 Unspecified retinal detachment with retinal break, left eye; I25.10 Atherosclerotic heart disease of native coronary artery without angina pectoris; I65.22 Occlusion and stenosis of left carotid artery; F43.10 Post-traumatic stress disorder, unspecified; F12.90 Cannabis use, unspecified, uncomplicated; Z79.899 Other long term (current) drug therapy; Z86.73 Personal history of transient ischemic attack (TIA), and cerebral infarction without residual deficits; Z79.82 Long term (current) use of aspirin
CPT/HCPCS: 0296T; 36415; 70450; 70496; 70498; 70551; 71045; 80048; 80053; 83735; 84100; 84443; 84484; 85025; 85610; 85652; 85730; 86140; 93005; 93306; 99285; A9270; G0378; Q9967; A9577